=== PATIENT | female | born 1990 | race Caucasian/White ===

== ENCOUNTER 2023-07-02 20:23 | Emergency (ER) | payer OTHER ==
[~2023-07-02] VITALS: Ht 167.6 cm; Wt 80.3 kg
[2023-07-02 20:29] VITALS: BP 134/67
[2023-07-02] MEDS ORDERED: AMOCLA875 PO (21:00)
== END 2023-07-02 21:22 | disposition home or self-care (01) ==
LOC: ER 20:23
DX: H66.91 Otitis media, unspecified, right ear (principal); R22.0 Localized swelling, mass and lump, head
CPT/HCPCS: 96372; 99283; A9270; J1885

== ENCOUNTER 2024-12-20 12:14 | Emergency (ER) | payer OTHER ==
[~2024-12-20] VITALS: Ht 172.7 cm; Wt 59.0 kg
[~2024-12-20 12:14] MED LIST: AMOCLA875 PO
[2024-12-20 12:56] VITALS: BP 134/65
[2024-12-20] MEDS ORDERED: Diazepam 5 MG Tab PO ONE (13:15)
[2024-12-20] MEDS ORDERED: Ketorolac Tromethamine 30mg Vial IM ONE (13:15)
[2024-12-20] MEDS ORDERED: Percocet 5-3251 EACH PO ×2 (15:18→16:59)
[2024-12-20] MEDS ORDERED: Robaxin750 MG PO ×2 (15:38→16:59)
[2024-12-20] MEDS ORDERED: CYCL10 PO (17:30)
== END 2024-12-20 15:40 | disposition home or self-care (01) ==
LOC: ER 12:14
DX: S16.1XXA Strain of muscle, fascia and tendon at neck level, initial encounter (principal); V89.2XXA Person injured in unspecified motor-vehicle accident, traffic, initial encounter
CPT/HCPCS: 72070; 72100; 72125; 96372; 99284-25; A9270; J1885